=== PATIENT | female | born 1950 | race Two or more races ===

== ENCOUNTER 2018-03-31 07:30 | Outpatient (CLI) | payer OTHER | END 2018-03-31 07:34 | disposition home or self-care (01) | LOC: RAD 07:30 | DX: E05.20 Thyrotoxicosis with toxic multinodular goiter without thyrotoxic crisis or storm (principal) ==

== ENCOUNTER 2018-04-13 05:23 | Day surgery (SDC) | payer OTHER ==
[~2018-04-13] VITALS: Ht 160 cm; Wt 54.4 kg
[~2018-04-13 05:23] MED LIST: AVAPRO150 MG PO; FOLIC ACID1 MG PO; IRON18 MG PO; LOSARTAN-HCTZ1 EACH PO; METAMUCIL0.52 GM PO; RANITIDINE HCL75 MG PO; SIMVASTATIN10 MG PO
[2018-04-14] MEDS ORDERED: CALCITRIOL0.5 MCG PO (08:26)
[2018-04-14] MEDS ORDERED: SYNTHROID88 MCG PO (08:27)
[2018-04-14] MEDS ORDERED: PERCOCET 5-3251 EACH PO (08:29)
== END 2018-04-14 08:00 | disposition home or self-care (01) ==
LOC: CIR.AMB 05:23 → SURH 10:28 → CIR.AMB 10:28 → O/R 10:28 → SURH 14:00 → O/R 14:00 → CIR.AMB 04-14 08:00 → SURH 04-14 09:22
DX: D34 Benign neoplasm of thyroid gland (principal); D35.1 Benign neoplasm of parathyroid gland; E04.2 Nontoxic multinodular goiter